=== PATIENT | female | born 1930 | race Caucasian/White ===

== ENCOUNTER → 2017-12-15 | Outpatient (CLI) | payer MEDICARE, OTHER ==
[~2017-12-15] MED LIST: ASPIR 8181 MG PO; CALCIUM CITRAT250 MG PO; COQ-10100 MG PO; ESTRADIOL1 MG PO; FISH OIL 1,4001 EACH PO; FLAX SEED OIL1000 MG PO; GLUCOSAMINE1000 MG; LANTUS100 UNITS/ SQ; LEVAQUIN500 MG PO; LOSARTAN-HCTZ1 EAC1 PO; METFORMIN HCL1000 MG PO; NAPROXEN250 MG PO; NEXIUM40 MG PO; SIMVASTATIN10 MG PO; SYNTHROID112 MCG PO; VITAMIN C500 MG PO; VITAMIN D35000 UNIT PO
--- NOTE | 2017-12-15 10:10 | Diagnostic Imaging Report ---
PROCEDURE:CHEST 2 VIEWS TECHNIQUE:PA and lateral chest INDICATION:Cough; congestion with sore throat. COMPARISON:None. FINDINGS: The lungs are clear and symmetrically inflated. No pleural effusions. Normal heart size, mediastinal contour, and pulmonary vasculature for patient age. Intact skeleton. CONCLUSION: No evidence of pneumonia or other acute abnormality. Dictated by: Carlos Porter M.D. on 12/15/2017 at 10:12 Electronically approved by: Carlos Porter M.D. on 12/15/2017 at 10:12
== END ==
LOC: RAD 08:54
PROVIDERS: ATTEND Family Medicine
DX: R05 Cough (principal)
CPT/HCPCS: 71046

== ENCOUNTER → 2018-05-11 | Outpatient (CLI) | payer MEDICARE, OTHER ==
--- NOTE | 2018-05-11 11:14 | Diagnostic Imaging Report ---
History: TIA Comparison studies: None Technique: Sagittal T2; axial DWI, FLAIR, MPGR, T1, Coronal FLAIR. Intravenous contrast: None Findings: Scalp: Normal in signal . No masses . Bone marrow: Normal in signal intensity. Extra-axial: No masses, no fluid collections. Brain sulci: Appropriate for age. Ventricles: Mildly prominent . No hydrocephalus . Parenchyma: Few small T-2/flair hyperintensities of the periventricular and deep white matter. Mild subependymal flair hyperintensities No masses, hemorrhage, acute or chronic vascular insults. Suprasellar region: No abnormalities. Craniocervical junction: No abnormalities. Patent foramen magnum. No Chiari one malformation. Vessels: Normal flow-voids in the arteries and sinuses. Mild mucosal thickening at the left mastoid tip. IMPRESSION: 1. No acute abnormalities. 2. Mild chronic microvascular ischemic changes of the white matter. Mild central volume loss. Signed by: DR Dung Navarro M.D. on 05/11/2018 11:11 AM
== END ==
LOC: MRI 07:42
PROVIDERS: ATTEND Family Medicine
DX: G45.9 Transient cerebral ischemic attack, unspecified (principal)
CPT/HCPCS: 70551

== ENCOUNTER → 2018-10-07 | Outpatient (CLI) | payer MEDICARE, OTHER ==
[~2018-10-07] MED LIST changes: +GADOBENATE DIMEGLUMINE 1 ML IV ONE
[2018-10-07 13:58] LABS: BLOOD UREA NITROGEN 16 mg/dL (7-26); BUN/CREATININE RATIO 20 (6-25); EST GLOMERULAR FILTRATION RATE > 60 ML/MIN (60-)
--- NOTE | 2018-10-07 15:57 | Diagnostic Imaging Report ---
TECHNIQUE: Magnetic resonance imaging of the LEFT femur was performed WITH and WITHOUT, 15 cc of intravenous MultiHance. A skin marker overlies the anterior aspect of the distal thigh at the level of the distal femoral diaphysis. Study was optimized to evaluate the soft tissues underlying the region of the skin marker. HISTORY: Pain, mass COMPARISON: None. FINDINGS: BONES: No acute fracture. No focal or infiltrative bone marrow replacing abnormality. JOINTS: Tricompartmental degenerative changes of the knee. Trace effusion. SOFT TISSUES: No enhancing soft tissue mass or cyst under the region of the skin marker. Mildly prominent adipose tissue under the region of the skin marker, but no discrete encapsulated lipomatous lesion. IMPRESSION: Prominent normal-appearing adipose tissue underlying the region of the skin marker, without a discrete soft tissue mass. Signed by: Terrie Rojas.O., M.M.M. on 10/07/2018 3:54 PM
== END ==
LOC: MRI 13:08
PROVIDERS: ATTEND Orthopaedic Surgery
DX: M79.652 Pain in left thigh (principal); R22.42 Localized swelling, mass and lump, left lower limb
CPT/HCPCS: 36415; 82565; 84520

== ENCOUNTER → 2019-03-01 | Outpatient (CLI) | payer MEDICARE, OTHER ==
[~2019-03-01] MED LIST changes: -GADOBENATE DIMEGLUMINE 1 ML IV ONE
--- NOTE | 2019-03-01 23:00 | Diagnostic Imaging Report ---
Bone mineral density study. History: OSTEOPEROSIS Comparison: Baseline July 01, 2013, most recent September 08, 2016 Discussion: Evaluation of the left hip and lumbar spine was performed. The study is technically adequate. The patient's fracture risk is compared to an age-matched control. The patient denies prior surgery/fracture of the spine, hips or forearm. Left hip femoral neck bone mineral density: 0.7 g/cm2, T-score is -1.6, Z-score is 0.9. The left hip total bone mineral density is 0.8 g/cm2, the T-score is -1.3 and the total Z-score is 1.1. The BMD change versus baseline is - 6.7% (statistically significant) and the BMD change versus previous - 0.1% (not statistically significant). The lumbar spine total bone mineral density is 1.2 g/cm2, the T-score is 1.3, and the Z-score is 4.1. The BMD change versus baseline is - 1% (not statistically significant) and the BMD change versus previous + 2.5% (statistically significant). IMPRESSION: 1. Bone mineralization by WHO Classification is low bone mass/osteopenia, the fracture risk is increased. 2. The FRAX 10-year probability of major osteoporotic fracture is 21% and hip fracture is 13%. These probabilities assume the patient is untreated. Signed by: Dr. Julian Giron D.O., M.M.M. on 03/01/2019 10:57 PM
== END ==
LOC: DX 08:14
DX: Z78.0 Asymptomatic menopausal state (principal)
CPT/HCPCS: 77080